=== PATIENT | male | born 1985 | race Caucasian/White ===

== ENCOUNTER 2020-12-21 15:03 | Emergency (ER) | payer OTHER ==
[~2020-12-21 15:03] MED LIST: BACTRIM DS TAB1 EACH PO; CEPHALEXIN500 MG PO
== END 2020-12-21 16:17 | disposition home or self-care (01) ==
LOC: ER1 15:03
DX: T15.02XA Foreign body in cornea, left eye, initial encounter (principal); F17.200 Nicotine dependence, unspecified, uncomplicated; X58.XXXA Exposure to other specified factors, initial encounter
CPT/HCPCS: 99283